=== PATIENT | female | born 1955 | race Caucasian/White ===

== ENCOUNTER 2025-07-04 11:32 | Emergency (ER) | payer MEDICARE ==
[~2025-07-04 11:32] MED LIST: Iopamidol-370 76% 500 ML MDV (1 ML CHARGE) ONE
[2025-07-04] MEDS ORDERED: Tranexamic Acid 1,000 MG/10 ML VIAL ONE ×2 (11:40→11:44)
[2025-07-04] MEDS ORDERED: CEFAZOLIN 2 GM VIAL ONE (11:43)
[2025-07-04] MEDS ORDERED: Lidocaine 1% w/Epinephrine 1:100K 20 ML VIAL ONE (11:43)
[2025-07-04] MEDS ORDERED: Boostrix 0.5 ML (Tdap) VIAL (>/=7 yrs of age) ONE (11:43)
[2025-07-04] MEDS ORDERED: cefTRIAXone (ROCEPHIN) 2 GM VIAL ONE (11:45)
[2025-07-04] MEDS ORDERED: metroNIDAZOLE 500 MG (100 mL) BAG ONE (11:45)
[2025-07-04 12:06] LABS: INR-International Normal Ratio 1.1; PTT 23.1 sec (22.9-36.1); Prothrombin Time 14.0 sec (12.0-14.7)
[2025-07-04 12:20] LABS: #Basophils 0.07 10x3/uL (0.0-0.2); #Eosinophils Less than 0.03 10x3/uL (0.0-0.7); #Monocytes 0.96 10x3/uL (0.11-0.59); #Neutrophils 13.24 10x3/uL (1.40-6.50); %Basophils 0.4 % (0.0-1.0); %Eosinophils 0.1 % (0.0-10.0); %Lymphocytes 10.6 % (21.0-51.0); %Monocytes 6.0 % (0.0-10.0); %Neutrophils 82.3 % (42.0-75.0); Hematocrit 32.2 % (36.0-47.0); Hemoglobin 10.4 g/dL (12.0-16.0); Mean Corpuscular Hemoglobin 31.2 pg (27.0-31.0); Mean Corpuscular Volume 96.7 fL (78.0-98.0); Platelet Count 187 10x3/uL (130-400); Red Blood Cell (RBC) Count 3.33 mill/uL (4.20-5.40); White Blood Cell (WBC) Count 16.09 10x3/uL (4.8-10.8)
[2025-07-04 12:27] LABS: ALT (SGPT) 19 U/L (Less than 34); AST (SGOT) 25 U/L (11-34); Albumin 3.6 g/dL (3.1-4.5); Alkaline Phosphatase 54 U/L (40-110); Anion Gap 14 mmol/L (10-20); BUN (Urea Nitrogen) 18 mg/dL (9.8-20.1); Bilirubin, Total 0.4 mg/dL (0.3-1.2); Calc. Creatinine Clearance 0 mL/min (70-130); Calcium 8.5 mg/dL (7.8-10.44); Carbon Dioxide 18 mmol/L (23-31); Chloride 108 mmol/L (98-107); Globulin 2.8 g/dL (2.4-3.5); Glucose 133 mg/dL (80-115); Lipase 21 U/L (8-78); Potassium 3.7 mmol/L (3.5-5.1); Sodium 136 mmol/L (136-145)
[2025-07-04] MEDS ORDERED: HYDROmorphone 0.5 MG/0.5 ML SYRINGE ONE (13:47)
[2025-07-04] MEDS ORDERED: Ondansetron PF 4 MG/2 ML Vial ONE (15:56)
== END 2025-07-04 16:14 | disposition home or self-care (01) ==
LOC: ERS 11:32
DX: S42.214A Unspecified nondisplaced fracture of surgical neck of right humerus, initial encounter for closed fracture (principal); S42.209A Unspecified fracture of upper end of unspecified humerus, initial encounter for closed fracture; S82.831A Other fracture of upper and lower end of right fibula, initial encounter for closed fracture; S22.31XA Fracture of one rib, right side, initial encounter for closed fracture; S01.01XA Laceration without foreign body of scalp, initial encounter; S01.111A Laceration without foreign body of right eyelid and periocular area, initial encounter; S01.81XA Laceration without foreign body of other part of head, initial encounter; E03.9 Hypothyroidism, unspecified; V89.2XXA Person injured in unspecified motor-vehicle accident, traffic, initial encounter; Z79.899 Other long term (current) drug therapy
CPT/HCPCS: 12005; 12011; 12035; 36415; 70450; 70486; 71045; 71260; 72125; 72170; 74177; 80053; 80307; 83690; 85025; 85610; 85730; 86850; 86900; 86901; 90471; 90715; 93005; 94760; 96374; 96375; 96376; G0390; J0696; J1171; Q9967